=== PATIENT | female | born 1970 | race Caucasian/White ===

== ENCOUNTER 2020-03-02 16:24 | Emergency (ER) | payer MEDICARE, MEDICAID ==
--- NOTE | 2020-03-02 17:07 | EDM.PDOC ---
ED HPI GENERAL MEDICAL PROBLEM - General Stated Complaint: PAIN R SHOULD SURGERY1 WEEK AGO Time Seen by Provider: 03/02/20 17:15 Source of Information: Reports: Patient History Limitations: Reports: No Limitations - History of Present Illness INITIAL COMMENTS - FREE TEXT/NARRATIVE: Patient presented to the ED because of rt shoulder pain. She had a right shoulder surgery 1 week ago and she ran out of her tramadol. The pain is sharp10/10 and worse with movements. - Related Data Allergies Allergy/AdvReac Type Severity Reaction Status Date / Time erythromycin base Allergy Severe Hives Verified 06/13/14 08:10 [Erythromycin Base] acetaminophen [From Vicodin] Allergy Rash Verified 06/13/14 08:10 codeine Allergy Rash Verified 06/13/14 08:10 hydrocodone bitartrate Allergy Rash Verified 06/13/14 08:10 [From Vicodin] Home Meds: Home Meds Gabapentin [Neurontin] 100 mg PO DAILY 02/20/14 [History] Tylenol Pm 25 - 500 mg PO ACBED PRN 02/20/14 [History] Venlafaxine [Effexor XR] 150 mg PO DAILY 02/20/14 [History] rOPINIRole [Requip] 3 mg PO DAILY 02/20/14 [History] traMADol [Ultram] 50 - 100 mg PO TID 06/12/14 [History] oxyCODONE 5 mg PO Q6H PRN #15 tab 03/02/20 [Rx] ED ROS GENERAL - Review of Systems Review Of Systems: See Below Constitutional: Reports: No Symptoms HEENT: Reports: No Symptoms Respiratory: Reports: No Symptoms Cardiovascular: Reports: No Symptoms Endocrine: Reports: No Symptoms GI/Abdominal: Reports: No Symptoms : Reports: No Symptoms Musculoskeletal: Reports: Shoulder Pain Skin: Reports: No Symptoms ED EXAM, GENERAL - Physical Exam Exam: See Below Exam Limited By: No Limitations General Appearance: Alert, No Apparent Distress Eye Exam: Bilateral Eye: PERRL Ears: Normal External Exam, Normal Canal Nose: Normal Inspection, Normal Mucosa Throat/Mouth: Normal Inspection, Normal Lips, Normal Teeth Head: Atraumatic, Normocephalic Neck: Normal Inspection, Supple, Non-Tender, Full Range of Motion Respiratory/Chest: No Respiratory Distress, Lungs Clear, Normal Breath Sounds Cardiovascular: Normal Peripheral Pulses, Regular Rate, Rhythm, No Edema GI/Abdominal: Normal Bowel Sounds, Soft, Non-Tender, No Organomegaly Back Exam: Normal Inspection, Full Range of Motion Extremities: Normal Inspection, Limited Range of Motion, Other (Rt shoulder tenderness) Psychiatric: Normal Affect, Normal Mood Skin Exam: Warm, Intact, Other (incision site doesn't look infecred) Course - Vital Signs Last Recorded V/S: Last Vital Signs Temp 36.8 C 03/02/20 17:09 Pulse 84 03/02/20 17:09 Resp 18 03/02/20 17:09 BP 140/86 03/02/20 17:09 Pulse Ox 96 03/02/20 17:09 Departure - Departure Time of Disposition: 17:10 Disposition: Home, Self-Care 01 Condition: Good Clinical Impression: Post-op pain - Discharge Information Prescriptions: oxyCODONE 5 mg PO Q6H PRN #15 tab PRN Reason: Pain Instructions: Shoulder Pain, Preventing Constipation After Surgery Referrals: Blanche Son NP [Primary Care Provider] - Forms: ED Department Discharge Additional Instructions: Please read discharge instructions on post operative pain Take oxycodone 5 mg, 1-2 tablets every 4- 6 hours as needed for pain Follow up with your surgeon if pain persist Sepsis Event Note (ED) - Focused Exam Vital Signs: Vital Signs Temp Pulse Resp BP Pulse Ox 03/02/20 17:09 36.8 C 84 18 140/86 96
[2020-03-02 19:30] VITALS: BP 140/86; PULSE 84
== END 2020-03-02 17:24 | disposition home or self-care (01) ==
LOC: FB.ED 16:24
DX: G89.18 Other acute postprocedural pain (principal); M25.511 Pain in right shoulder; Z88.1 Allergy status to other antibiotic agents; Z88.5 Allergy status to narcotic agent; Z79.899 Other long term (current) drug therapy
CPT/HCPCS: 99283

== ENCOUNTER 2021-02-19 20:46 | Emergency (ER) | payer MEDICARE, MEDICAID ==
--- NOTE | 2021-02-19 21:44 | EDM.PDOC ---
ED HPI GENERAL MEDICAL PROBLEM - General Chief Complaint: Lower Extremity Injury/Pain Stated Complaint: LEGS SWELLING AND PAIN Time Seen by Provider: 02/19/21 20:55 Source of Information: Reports: Patient History Limitations: Reports: No Limitations - History of Present Illness INITIAL COMMENTS - FREE TEXT/NARRATIVE: c/o RLE swell and pain pt has had pain and swell in her LEs for years she had a RLE DVT in the past, not on anticoagulation RLE began to itch over the foot, pt has been scratching today now in the evening she has had inc'd pain of the RLE below the knee down to the foot, says there is more swelling than in the past no f/c/d 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, 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 Right Lower Leg Pain Score (Numeric/FACES): 11 - Related Data Allergies Allergy/AdvReac Type Severity Reaction Status Date / Time erythromycin base Allergy Severe Hives Verified 06/13/14 08:10 [Erythromycin Base] acetaminophen [From Vicodin] Allergy Rash Verified 06/13/14 08:10 codeine Allergy Rash Verified 06/13/14 08:10 hydrocodone bitartrate Allergy Rash Verified 06/13/14 08:10 [From Vicodin] Home Meds: Home Meds Gabapentin [Neurontin] 100 mg PO DAILY 02/20/14 [History] Tylenol Pm 25 - 500 mg PO ACBED PRN 02/20/14 [History] Venlafaxine [Effexor XR] 150 mg PO DAILY 02/20/14 [History] rOPINIRole [Requip] 3 mg PO DAILY 02/20/14 [History] traMADol [Ultram] 50 - 100 mg PO TID 06/12/14 [History] oxyCODONE 5 mg PO Q6H PRN #15 tab 03/02/20 [Rx] Loratadine 10 mg PO DAILY #30 tablet 02/19/21 [Rx] predniSONE 20 mg PO ASDIRECTED #9 tab 02/19/21 [Rx] Past Medical History Cardiovascular History: Reports: Blood Clots/VTE/DVT Respiratory History: Reports: Other (See Below) 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 Social & Family History - Family History Family Medical History: No Pertinent Family History - Tobacco Use Tobacco Use Status *Q: Current Some Day Tobacco User Years of Tobacco use: 5 Packs/Tins Daily: 0 - Caffeine Use Caffeine Use: Reports: None Review of Systems - Review of Systems Review Of Systems: See Below Constitutional: Reports: No Symptoms Eyes: Reports: No Symptoms Ears: Reports: No Symptoms Nose: Reports: No Symptoms Mouth/Throat: Reports: No Symptoms Respiratory: Reports: No Symptoms Cardiovascular: Reports: No Symptoms GI/Abdominal: Reports: No Symptoms Genitourinary: Reports: No Symptoms Musculoskeletal: Reports: Other (leg swell) Skin: Reports: Pruritis, Rash Neurological: Reports: No Symptoms Psychiatric: Reports: No Symptoms ED EXAM, GENERAL - Physical Exam Exam: See Below Free Text/Narrative:: LE with edema b/l, 1+ to knee on L, 1-2+ to knee on R, no cords/homans, slight red flush to skin of R foot and ankle and 1/2 up pretib area, slight warmth c/w early cellulitis, no cords/Homans, calf muscles soft b/l, skin soft b/l without induration, 2+ DP pulses b/l Exam Limited By: No Limitations General Appearance: Alert, WD/WN, No Apparent Distress Throat/Mouth: Normal Voice, No Airway Compromise Head: Atraumatic, Normocephalic Neck: Normal Inspection, Supple, Non-Tender Respiratory/Chest: No Respiratory Distress, Lungs Clear, Chest Non-Tender Cardiovascular: Regular Rate, Rhythm, Other Peripheral Pulses: 2+: Dorsalis Pedis (L), Dorsalis Pedis (R) GI/Abdominal: Soft, Non-Tender, No Distention Extremities: Other Neurological: Alert, Oriented, CN II-XII Intact, Normal Cognition, No Motor/Sensory Deficits Psychiatric: Normal Affect, Normal Mood Lymphatic: No Adenopathy Course - Vital Signs Last Recorded V/S: Last Vital Signs Temp 36.8 C 02/19/21 20:55 Pulse 81 02/19/21 22:17 Resp 16 02/19/21 22:17 BP 133/76 02/19/21 22:17 Pulse Ox 96 02/19/21 22:17 - Orders/Labs/Meds Labs: Laboratory Tests 02/19/21 02/19/21 02/19/21 Range/Units 21:14 21:23 21:23 WBC 5.6 (3.0-10.3) x10-3/uL RBC 4.45 (3.60-5.20) x10(6)uL Hgb 14.4 (11.4-15.5) g/dL Hct 42.3 (34.2-48.2) % MCV 95.1 (76.7-100.5) fL MCH 32.3 (23.9-33.9) pg MCHC 34.0 (31.9-34.8) g/dL RDW 13.2 (12.3-16.5) % Plt Count 219 (151-488) x10(3)uL MPV 7.8 (7.1-12.4) fL Neut % (Auto) 66.6 (30.8-76.2) % Lymph % (Auto) 24.7 (18.4-52.1) % [place] % (Auto) 6.6 (4.4-15.7) % Eos % (Auto) 1.4 (0.6-8.1) % Baso % (Auto) 0.7 (0.2-1.5) % Neut # (Auto) 3.7 (1.5-6.3) x10-3/uL Lymph # (Auto) 1.4 (1.0-4.4) x10-3/uL [place] # (Auto) 0.4 (0.3-1.0) x10-3/uL Eos # (Auto) 0.1 (0.0-0.8) x10-3/uL Baso # (Auto) 0.0 (0.0-0.1) x10-3/uL PT 9.9 (9.0-11.1) sec INR 0.91 L (1.00-1.24) D-Dimer, Quantitative 0.38 (0.0-0.59) mg/LFEU Sodium (135-145) mmol/L Potassium (3.5-5.3) mmol/L Chloride (100-110) mmol/L Carbon Dioxide (21-32) mmol/L BUN (7-18) mg/dL Creatinine (0.55-1.02) mg/dL Est Cr Clr Drug Dosing mL/min Estimated GFR (MDRD) (>60) BUN/Creatinine Ratio (9-20) Glucose (80-116) mg/dL Calcium (8.6-10.2) mg/dL Total Bilirubin (0.1-1.3) mg/dL AST (5-25) IU/L ALT (12-36) U/L Alkaline Phosphatase (56-112) IU/L C-Reactive Protein (0.5-0.9) mg/dL Total Protein (6.0-8.0) g/dL Albumin (3.5-5.2) g/dL Globulin g/dL Albumin/Globulin Ratio 02/19/21 02/19/21 Range/Units 21:23 21:23 WBC (3.0-10.3) x10-3/uL RBC (3.60-5.20) x10(6)uL Hgb (11.4-15.5) g/dL Hct (34.2-48.2) % MCV (76.7-100.5) fL MCH (23.9-33.9) pg MCHC (31.9-34.8) g/dL RDW (12.3-16.5) % Plt Count (151-488) x10(3)uL MPV (7.1-12.4) fL Neut % (Auto) (30.8-76.2) % Lymph % (Auto) (18.4-52.1) % [place] % (Auto) (4.4-15.7) % Eos % (Auto) (0.6-8.1) % Baso % (Auto) (0.2-1.5) % Neut # (Auto) (1.5-6.3) x10-3/uL Lymph # (Auto) (1.0-4.4) x10-3/uL [place] # (Auto) (0.3-1.0) x10-3/uL Eos # (Auto) (0.0-0.8) x10-3/uL Baso # (Auto) (0.0-0.1) x10-3/uL PT (9.0-11.1) sec INR (1.00-1.24) D-Dimer, Quantitative (0.0-0.59) mg/LFEU Sodium 142 (135-145) mmol/L Potassium 3.7 (3.5-5.3) mmol/L Chloride 103 (100-110) mmol/L Carbon Dioxide 28 (21-32) mmol/L BUN 16 (7-18) mg/dL Creatinine 0.9 (0.55-1.02) mg/dL Est Cr Clr Drug Dosing 63.14 mL/min Estimated GFR (MDRD) > 60 (>60) BUN/Creatinine Ratio 17.8 (9-20) Glucose 118 H (80-116) mg/dL Calcium 9.1 (8.6-10.2) mg/dL Total Bilirubin 0.7 (0.1-1.3) mg/dL AST 18 (5-25) IU/L ALT 28 (12-36) U/L Alkaline Phosphatase 113 H (56-112) IU/L C-Reactive Protein 0.5 (0.5-0.9) mg/dL Total Protein 7.2 (6.0-8.0) g/dL Albumin 3.6 (3.5-5.2) g/dL Globulin 3.6 g/dL Albumin/Globulin Ratio 1.0 Meds: Medications Discontinued Medications Generic Name Dose Route Start Last Admin Trade Name Freq PRN Reason Stop Dose Admin Enoxaparin Sodium 100 mg 02/19/21 22:39 02/19/21 22:47 Enoxaparin 100 Mg/1 Ml Syringe SUBCUT 02/19/21 22:40 100 mg ONETIME ONE Administration Loratadine 10 mg 02/19/21 22:27 02/19/21 22:48 Loratadine 10 Mg Tab PO 02/19/21 22:28 10 mg ONETIME ONE Administration Methylprednisolone Sodium Succinate 125 mg 02/19/21 22:27 02/19/21 22:48 Methylprednisolone Sodium Succinate 125 Mg/2 Ml Sdv IM 02/19/21 22:28 125 mg ONETIME ONE Administration Departure - Departure Time of Disposition: 22:28 Disposition: Home, Self-Care 01 Condition: Good Clinical Impression: Eczema of lower extremity, Bilateral lower extremity edema - Discharge Information *PRESCRIPTION DRUG MONITORING PROGRAM REVIEWED*: Yes *COPY OF PRESCRIPTION DRUG MONITORING REPORT IN PATIENT YUDI: No Prescriptions: Loratadine 10 mg PO DAILY #30 tablet predniSONE 20 mg PO ASDIRECTED #9 tab Referrals: Blanche Son NP [Primary Care Provider] - Forms: ED Department Discharge Additional Instructions: For itching and dry skin, take prednisone 20 mg 2 tabs daily for 2 days, then 1 tab daily for 5 days. For itching and dry skin, take loratadine 10 mg 1 tab daily for 30 days. Avoid soaps to skin in affected areas. Use moisturizer or thin layer of olive oil 1-2 times daily to soften and moisten skin. See your cleat thrower tomorrow morning as scheduled. While a blood clot is unlikely, come to the hospital here at 1:15 PM tomorrow afternoon for a doppler ultrasound of your right lower extremity. See your PCP next week for further recommendations. Sepsis Event Note (ED) - Evaluation Sepsis Screening Result: No Definite Risk
[2021-02-19 22:18] VITALS: BP 133/76; PULSE 81
[2021-02-19] MEDS ORDERED: Loratadine 10 MG Tab PO ONE (22:27)
[2021-02-19] MEDS ORDERED: methylPREDNISolone Sodium Succinate 125 MG/2 ML SDV IM ONE (22:27)
[2021-02-19] MEDS ORDERED: Enoxaparin 100 MG/1 ML Syringe SUBCUT ONE (22:39)
== END 2021-02-19 23:00 | disposition home or self-care (01) ==
LOC: FB.ED 20:46
DX: L30.9 Dermatitis, unspecified (principal); R60.0 Localized edema; Z86.718 Personal history of other venous thrombosis and embolism; Z72.0 Tobacco use; Z88.1 Allergy status to other antibiotic agents; Z88.6 Allergy status to analgesic agent; Z88.5 Allergy status to narcotic agent; Z79.899 Other long term (current) drug therapy
CPT/HCPCS: 36415; 80053; 85025; 85379; 85610; 86140; 96372; 99283; A9270; J1650; J2930

== ENCOUNTER 2021-09-11 09:09 | Emergency (ER) | payer MEDICARE, MEDICAID ==
[2021-09-11] MEDS ORDERED: Morphine 4 MG/ML VIAL IVPUSH ONE (09:22)
[2021-09-11] MEDS ORDERED: Ondansetron 4 MG/2 ML SDV IVPUSH ONE (09:22)
[2021-09-11] MEDS ORDERED: Sodium Chloride 0.9% 10 ML Syringe FLUSH PRN (09:23)
[2021-09-11 10:41] VITALS: BP 120/53; PULSE 88
== END 2021-09-11 11:05 | disposition home or self-care (01) ==
LOC: FB.ED 09:09
DX: S39.012A Strain of muscle, fascia and tendon of lower back, initial encounter (principal); K21.9 Gastro-esophageal reflux disease without esophagitis; E66.9 Obesity, unspecified; Z68.30 Body mass index [BMI] 30.0-30.9, adult; Z88.5 Allergy status to narcotic agent; Z88.1 Allergy status to other antibiotic agents; Z79.899 Other long term (current) drug therapy; Z72.0 Tobacco use; W00.0XXA Fall on same level due to ice and snow, initial encounter
CPT/HCPCS: 36415; 72100; 73521; 80053; 85025; 85610; 85730; 96374; 96375; 99283-25; J2270; J2405

== ENCOUNTER 2023-02-14 23:52 | Emergency (ER) | payer OTHER, MEDICARE, MEDICAID ==
[2023-02-15 00:02] VITALS: BP 152/81; PULSE 79
== END 2023-02-15 00:11 | disposition home or self-care (01) ==
LOC: FB.ED 23:52
DX: R60.0 Localized edema (principal); J45.909 Unspecified asthma, uncomplicated; K21.9 Gastro-esophageal reflux disease without esophagitis; Z88.5 Allergy status to narcotic agent; Z88.1 Allergy status to other antibiotic agents; Z79.51 Long term (current) use of inhaled steroids; Z86.16 Personal history of COVID-19
CPT/HCPCS: 99283